=== PATIENT | male | born 1945 | race Caucasian/White ===

== ENCOUNTER 2016-12-07 07:55 | Day surgery (SDC) | payer MEDICARE, OTHER ==
[~2016-12-07] VITALS: Ht 177.8 cm; Wt 107.7 kg
--- NOTE | ~2016-12-07 | HP ---
PATIENT: AMRIK UP MEDICAL RECORD: [id number] ACCOUNT: [id number] LOCATION:[facility] : 47 ADMISSION DATE: 12/07/16 HISTORY AND PHYSICAL EXAMINATION CHIEF COMPLAINT: Pinedo esophagus. Also, history of colon polyps. 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 I reviewed his pathology report from his last procedure. He also has a history of colon polyps. He states that during his last 3 colonoscopies, colon polyps were identified. His reflux is controlled on Nexium. He has a history and physical examination on the chart. It is unchanged from his visit to the office. The risks, possible complications, and alternatives to the procedure were explained to the patient. He elects to proceed. The discussion specifically included, but was not limited to, bleeding requiring an emergency reoperation, infection, endoscopic perforation, and the possible need for the argon plasma coagulation therapy. TRANSINT:[id number] Voice Confirmation ID: [id number] DOCUMENT ID: [id number] DANIEL LINCOLN MD CC: KARLA GAY MD [id number] DICTATION DATE: 12/07/16 1011 CHARCOAL BURNER BEEHIVE KILN: 12/07/16 1057 REG [facility] [address] [id number]
--- NOTE | ~2016-12-07 | OP ---
PATIENT NAME: AMRIK UP MEDICAL RECORD: [id number] :47 LOCATION:D.OPS ADMISSION DATE: SURGEON: RITO LINCOLN MD DATE OF OPERATION: 12/07/2016 PREOPERATIVE DIAGNOSES: 1. History of Pinedo esophagus in need of a surveillance upper endoscopy with biopsies. 2. History of colon polyps in need of a surveillance colonoscopy. POSTOPERATIVE DIAGNOSES: 1. History of Pinedo esophagus in need of a surveillance upper endoscopy with biopsies. 2. History of colon polyps in need of a surveillance colonoscopy. 3. Evidence of Pinedo. No evidence of gastritis or peptic ulcer disease. No evidence of colonic polyps or masses. PROCEDURE: 1. Esophagogastroduodenoscopy with antral and distal esophageal biopsies. 2. Total colonoscopy to cecum. SURGEON: Rito Lincoln MD IT SECURITY CONSULTING DIRECTOR: None. BLOOD LOSS: Minimal. ANESTHESIA: IV sedation. COMPLICATIONS: None. The risks, possible complications, and alternatives to procedure were explained to the patient. He elects to proceed. ENDOSCOPIC COURSE: The patient was conveyed to the endoscopy suite electively on 12/07/2016. IV sedation was induced by the anesthesia staff. A bite block was inserted. A gastroscope was inserted into the mouth. It was advanced easily into the hypopharynx. The esophagus was easily intubated as were the stomach and duodenum. Upon withdrawal, retroflexed and angulus views were obtained. Cold endoscopic biopsies were obtained of the antrum. Cold endoscopic biopsies were obtained in the areas of Pinedo esophagus at the EG junction. The endoscope was then withdrawn under direct vision. The patient was turned 180 degrees and placed in the Mendoza position. A digital rectal examination was performed. It was normal. A colonoscope was inserted through the anus. It was easily advanced to the cecum. The prep was marginal. Upon withdrawal, I irrigated and aspirated extensively. The pullback was greater than a 14-minute pullback. I dragged the folds. I noted no polyps or masses. Retroflexed views obtained in the rectum. I then unretroflexed the scope and removed it under direct vision. I will see the patient in my office in 2-3 weeks. I will plan for his next upper endoscopy with biopsy to take place in 2 years. I will plan for his next surveillance colonoscopy to take place in 3 years. OPERATIVE REPORT [id number] AMRIK UP TRANSINT:[id number] Voice Confirmation ID: [id number] DOCUMENT ID: [id number] RITO LINCOLN MD CC: [id number] DICTATION DATE: 12/07/16 1100 [employer] LE[employer]ER: 12/07/16 112[address] [id number] [place] [id number]
[~2016-12-07 07:55] MED LIST: AMBIEN10 MG PO; KENALOG 0.1% OI80 GM TOPICAL; NEURONTIN 300300 MG PO; NEXIUM40 MG PO; SYNTHROID175 MCG PO; ZOLOFT100 MG PO
[2016-12-07] MEDS ORDERED: METANX PO (08:29)
[2016-12-07 08:35] VITALS: BP 146/86; Ht 177.8 cm; Wt 107.7 kg
[2016-12-07 08:49] LABS: BASOPHILS 0.4 % (0-2); EOSINOPHILS 1.5 % (0-7); HEMATOCRIT 44.8 % (42.0-54.0); HEMOGLOBIN 15.5 g/dL (13.5-17.5); IMMATURE GRANULOCYTES 0.5 % (0-5); LYMPHOCYTES 25.6 % (15-50); MCH 28.6 pg (26.0-34.0); MCHC 34.6 g/dL (31.0-37.0); MCV 82.7 fL (80.0-100.0); MEAN PLATELET VOLUME 9.6 fL (7.4-10.4); MONOCYTES 6.6 % (2-11); NEUTROPHILS 65.4 % (40-80); PLATELET COUNT 211 10x3/uL (130-400); RBC 5.42 10x6/uL (4.20-6.10); RDW 13.9 % (11.5-14.5); WBC 9.5 10x3/uL (4.8-10.8)
[2016-12-07 09:04] LABS: ANION GAP 15.3 mmol/L (8-16); CALCIUM 8.9 mg/dL (8.5-10.1); CARBON DIOXIDE 24.8 mmol/L (21.0-32.0); CREATININE - SERUM 1.6 mg/dL (0.6-1.3); POTASSIUM - SERUM 4.1 mmol/L (3.5-5.1)
--- NOTE | 2016-12-07 12:31 | NUR ---
1200 IV DC WITH CATHER TIP INTACT W/O REDNESS
== END 2016-12-07 12:15 | disposition home or self-care (01) ==
LOC: D.OPS 07:55
PROVIDERS: Anesthesiology
DX: K22.70 Barrett's esophagus without dysplasia (principal); Z86.010 Personal history of colon polyps; I10 Essential (primary) hypertension; E03.9 Hypothyroidism, unspecified; K21.9 Gastro-esophageal reflux disease without esophagitis; Z01.812 Encounter for preprocedural laboratory examination

== ENCOUNTER → 2017-09-27 08:45 | Outpatient (CLI) | payer MEDICARE, OTHER ==
[2016-12-07 08:35] VITALS: BMI 34.0
[~2017-09-27 08:45] MED LIST changes: +METANX PO
== END | disposition home or self-care (01) ==
LOC: D.LABREF 08:45
DX: L72.3 Sebaceous cyst (principal)